=== PATIENT | female | born 1940 | race Caucasian/White ===

== ENCOUNTER 2023-11-08 07:16 | Day surgery (SDC) | payer MEDICARE, BC ==
[~2023-11-08 07:16] MED LIST: ALPRAZolam 0.25 MG TAB PO PRN; ALPRAZolam 0.5 MG TAB PO PRN; ASPIRIN 325 MG TAB PO STA; NITROGLYCERIN SL TABS 0.4 MG TAB SUBLINGUAL PRN
[2023-11-08] MEDS: SODIUM CHLORIDE 0.9% 1,000 ML in EMPTY BAG 1 BAG IV SCH (07:23)
[2023-11-08] MEDS: IV FLUID CONTINUATION 1,000 ML IV ONE (07:24)
[2023-11-08 07:38] VITALS: TEMP 97.6
[2023-11-08] MEDS: SODIUM CHLORIDE 0.9% 1,000 ML IV ONE (07:39)
[2023-11-08 07:53] LABS: Basophils % (A) 0 %; Eosinophils # (A) 0.3 k/uL (0-0.7); Eosinophils % (A) 4 %; HCT 44.7 % (34.0-46.0); HGB 14.4 gm/dL (11.4-16.0); Hypochromasia Slight; Lymphocytes % (A) 28 %; MCH 31.5 pg (25.0-35.0); MCHC 32.2 g/dL (31.0-37.0); Mean Platelet Volume 7.5; Monocytes # (A) 0.5 k/uL (0-1.0); Monocytes % (A) 8 %; Neutrophils # (A) 4.1 k/uL (1.3-7.7); Neutrophils % (A) 59 %; Platelet Count 255 k/uL (150-450); RBC 4.56 m/uL (3.80-5.40)
[2023-11-08 08:13] LABS: African American GFR (CKD) 78 (>60 ml/min/1.73 sqM); Anion Gap 8 mmol/L; Blood Urea Nitrogen 16 mg/dL (7-17); Calcium 10.1 mg/dL (8.4-10.2); Carbon Dioxide 27 mmol/L (22-30); Chloride 106 mmol/L (98-107); Glucose 94 mg/dL (74-99); Non-African American GFR(CKD) 68 (>60 ml/min/1.73 sqM); Potassium 4.4 mmol/L (3.5-5.1); Sodium 141 mmol/L (137-145)
[2023-11-08] MEDS ORDERED: LIDOCAINE 1% INJ 10MG/ML (20 ML MDV) ONE (08:33)
[2023-11-08] MEDS ORDERED: HEPARIN SODIUM 1,000 UN/ML (10ML VL) ONE (08:33)
[2023-11-08] MEDS ORDERED: VERAPAMIL 2.5 MG/ML 2 ML AMP ONE (08:33)
[2023-11-08] MEDS ORDERED: fentaNYL (PF) 50 MCG/ML 2 ML AMP ONE (08:33)
[2023-11-08] MEDS: BENZOCAINE SPRAY 1 CAN TOPICAL ONE ×2 (09:20)
[2023-11-08] MEDS: fentaNYL (PF) 50 MCG/ML 2 ML AMP IVP ONE (09:24)
[2023-11-08] MEDS: MIDAZOLAM 2 MG/2 ML VIAL IVP ONE ×2 (09:24→09:27)
--- NOTE | 2023-11-08 09:36 | P.PCN ---
Date of Procedure: 11/08/23 Operative Findings: TRANSESOPHAGEAL ECHOCARDIOGRAM LITHARGE SUPERVISOR: BRAVO PARK MD, RPVI INDICATION: Aortic stenosis SEDATION: Conscious sedation COMPLICATION: None LEVEL OF SEDATION Moderate to sedation length of 12 minutes PROCEDURE DESCRIPTION: After obtaining an informed consent, the patient was brought to transesophageal echocardiogram room. Pulse oximetry and heart monitors were attached to the patient. The patient throat was sprayed using lidocaine. The patient was turned into left lateral position. After that a bite guard was placed. After an appropriate conscious sedation was initiated, the transesophageal echocardiogram was advanced through a bite guard into the mid esophagus. A 2-D echocardiogram images, color Doppler images, continuous wave images, pulse-wave images, of various cardiac structure were performed. After that the transesophageal echocardiogram probe was advanced into the stomach and fixed to obtain transgastric view was. The probe was brought into the mid esophagus. Inter-atrial septum was interrogated using 2D images, color Doppler images, and then contrast study. After that transesophageal echocardiogram was withdrawn out and upon withdrawing the descending thoracic aorta all the way up to the arch was evaluated. CONCLUSION: 1. Trileaflet aortic valve with severe aortic stenosis. The aortic valve area was 0.6 cm. The mean gradient of the aortic valve is 50 mmHg with a peak gradient of 75 mm number 2. Mildly thickened mitral valve leaflets with moderate mitral regurgitation 3. Moderate tricuspid regurgitation 4. Normal LV systolic function 5. Intact left atrial appendage 6. No evidence of pericardial effusion
[2023-11-08] MEDS: LIDOCAINE 1% INJ 10MG/ML (20 ML MDV) SQ ONE (09:42)
[2023-11-08] MEDS: VERAPAMIL SYRINGE (5 MG/10 ML) INTRAARTER ONE (09:43)
[2023-11-08] MEDS: HEPARIN SODIUM 1,000 UN/ML (10ML VL) IV ONE (09:46)
[2023-11-08] MEDS: HEPARIN SODIUM,PORCINE (1 ML) 2,500 UNIT in SODIUM CHLORIDE 0.9% 250 ML IRRIGATION PRN (09:49)
[2023-11-08] MEDS: HEPARIN SODIUM,PORCINE 10,000 UNIT in SODIUM CHLORIDE 0.9% 1,000 ML IRRIGATION PRN (09:49)
[2023-11-08] MEDS ORDERED: RX INFO: IV CONTRAST WAS GIVEN 1 EACH MISC MISCELLANE PRN (09:54)
[2023-11-08] MEDS: IOPAMIDOL-370 100ML BTL INJ ONE (09:55)
--- NOTE | 2023-11-08 09:57 | P.PCN ---
Date of Procedure: 11/08/23 Operative Findings: CARDIAC CATHETERIZATION PERFORMING PHYSICIAN: Ernst Macedo MD, RPVI PROCEDURE PERFORMED: 1. Selective right and left coronary angiogram 2. Ultrasound-guided access of the right radial artery INDICATION: Aortic stenosis COMPLICATION: None APPROACH: Right radial artery LEVEL OF SEDATION: Moderate with a sedation length of 18 minutes PROCEDURE DESCRIPTION: After obtaining an informed consent, the patient was brought to cardiac record label internship. Local anesthesia was performed using lidocaine subcutaneously. The right radial artery was cannulated using Seldinger technique, the guidewire passed easily, following that we advanced a 5-Vincentian sheath dilator assembly, the wire and dilator were removed and sheath was flushed. Following that, 2 mg of verapamil along with 5000 unit heparin were given. Selective right and left coronary angiogram using a 6-Vincentian JR4 and JL 3.5 cat heters. The procedure was completed there was no complication. SELECTIVE CORONARY ANGIOGRAM: The right coronary artery: Moderate caliber vessel and a dominant vessel with mild disease only with no high-grade stenosis was identified Left main: Is angiographically normal. Bifurcates into an LCx and LAD The left circumflex: Large-caliber vessel nondominant vessel appears to be angiographically normal The left anterior descending artery: Large-caliber vessel with no high-grade stenosis was identified CONCLUSION: 1. Mild nonobstructive coronary artery disease POSTPROCEDURE MANAGEMENT: Proceed with an evaluation for aortic valve replacement percutaneously or surgically
[2023-11-08] MEDS ORDERED: SODIUM CHLORIDE 0.9% 1,000 ML IV SCH (10:00)
[2023-11-08 12:06] VITALS: RESP 16
[2023-11-08 13:41] VITALS: BP 143/78; PULSE 62
== END 2023-11-08 14:10 | disposition home or self-care (01) ==
LOC: CATHCVL 07:16
PROVIDERS: ATTEND Internal Medicine Interventional Cardiology
DX: I08.3 Combined rheumatic disorders of mitral, aortic and tricuspid valves (principal); I25.10 Atherosclerotic heart disease of native coronary artery without angina pectoris; I10 Essential (primary) hypertension; E78.5 Hyperlipidemia, unspecified; I49.8 Other specified cardiac arrhythmias; Z79.899 Other long term (current) drug therapy; Z88.8 Allergy status to other drugs, medicaments and biological substances; Z88.5 Allergy status to narcotic agent
CPT/HCPCS: 80048; 85025; 93312; 93320; 93325; 93454

== ENCOUNTER → 2023-11-23 | Outpatient (CLI) | payer MEDICARE, BC ==
[2023-11-23 09:42] LABS: Basophils % (A) 1 %; Eosinophils # (A) 0.2 k/uL (0-0.7); Eosinophils % (A) 3 %; HCT 45.1 % (34.0-46.0); HGB 14.6 gm/dL (11.4-16.0); Hypochromasia Slight; Lymphocytes # (A) 1.6 k/uL (1.0-4.8); Lymphocytes % (A) 26 %; MCHC 32.5 g/dL (31.0-37.0); MCV 98.6 fL (80.0-100.0); Mean Platelet Volume 7.7; Monocytes # (A) 0.4 k/uL (0-1.0); Monocytes % (A) 7 %; Neutrophils # (A) 3.8 k/uL (1.3-7.7); Neutrophils % (A) 61 %; Platelet Count 232 k/uL (150-450); RBC 4.58 m/uL (3.80-5.40); RDW 12.8 % (11.5-15.5); WBC 6.2 k/uL (3.8-10.6)
[2023-11-23 09:53] LABS: ALT 18 U/L (4-34); AST 29 U/L (14-36); Albumin 4.4 g/dL (3.5-5.0); Albumin/Globulin Ratio 1.8; Alkaline Phosphatase 62 U/L (38-126); Bilirubin,Unconjugated 0.7 mg/dL (0.0-1.1); Globulin 2.5 g/dL; Magnesium 2.2 mg/dL (1.6-2.3); Total Bilirubin 0.8 mg/dL (0.2-1.3); Total Protein 6.9 g/dL (6.3-8.2)
[2023-11-23 09:55] LABS: ALT 19 U/L (4-34); AST 31 U/L (14-36); African American GFR (CKD) 78 (>60 ml/min/1.73 sqM); Albumin 4.4 g/dL (3.5-5.0); Albumin/Globulin Ratio 1.8; Alkaline Phosphatase 60 U/L (38-126); Anion Gap 7 mmol/L; Blood Urea Nitrogen 14 mg/dL (7-17); Calcium 10.1 mg/dL (8.4-10.2); Carbon Dioxide 27 mmol/L (22-30); Chloride 105 mmol/L (98-107); Globulin 2.5 g/dL; Glucose 98 mg/dL (74-99); Non-African American GFR(CKD) 68 (>60 ml/min/1.73 sqM); Potassium 4.5 mmol/L (3.5-5.1); Sodium 139 mmol/L (137-145); Total Bilirubin 0.9 mg/dL (0.2-1.3); Total Protein 6.9 g/dL (6.3-8.2)
[2023-11-23 09:56] LABS: INR 0.9 (<1.2); Partial Thromboplastin Time 22.8 sec (22.0-30.0); Prothrombin Time 10.5 sec (10.0-12.5)
[2023-11-23 10:03] LABS: NT-Pro-B-Type Natriuretic Pept 309 pg/mL
--- NOTE | 2023-11-23 13:48 | CT ---
EXAMINATION TYPE: CT TAVR Planning DATE OF EXAM: 11/23/2023 HISTORY: TAVR planning CT DLP: 1760.90 mGycm Automated Exposure Control for Dose Reduction was Utilized. CONTRAST: CT scan of the chest, abdomen and pelvis is performed with IV Contrast, patient injected with 125 mL of Isovue 370. COMPARISON: None TECHNIQUE: Helical imaging obtained through the chest, abdomen and pelvis during arterial phase gio christina administration of radiographic contrast intravenously. FINDINGS: See report from [facility] regarding preprocedural planning CHEST: Lower Neck and Thyroid: No significant findings Lungs: No significant findings Central Airway: No significant findings Pleura: No significant findings Pulmonary Arteries: No significant findings Heart and Pericardium: Mildly enlarged. No pericardial effusion. Lymph Nodes: No significant findings Mediastinum & Esophagus: No significant findings AV Calcification Severity: Mild ABDOMEN/PELVIS: Please note arterial phase of the imaging limits detailed evaluation of the solid abdominal organs. Liver: No significant findings Spleen: No significant findings Kidneys: No hydronephrosis. Bilateral renal cysts with large right inferior pole 6.5 cm cyst. Adrenal Glands: No significant findings Pancreas: No significant findings Gallbladder: Extrahepatic biliary ductal dilatation postcholecystectomy. 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 Bowel and Mesentery: Small hiatal hernia. Lymph Nodes: No significant findings Urinary Bladder: No significant findings Pelvic Organs: Calcified right uterine 1.7 cm fibroid. Other: Levoscoliotic curvature of the lumbar spine. Grade 1 anterolisthesis at L4-L5. Other Lines/Tubes/Devices/Hardware: None IMPRESSION: 1. No acute process. 2. Mild aortic valvular calcifications of aorta. [facility], , 11/23/2023 1:46 PM
[2023-11-23 15:21] LABS: Appearance,Urine Clear (Clear); Bilirubin,Urine Negative (Negative); Blood,Urine Negative (Negative); Color,Urine Yellow (Yellow); Ketones,Urine Negative (Negative); Nitrite,Urine Negative (Negative); PH, Urine 6.5; Specific Gravity,Urine 1.009 (1.001-1.030); Urobilinogen,Urine 0.2 E.U./DL
[2023-11-23 15:27] LABS: Bacteria,Urine None Seen (None Seen)
[2023-11-23 16:32] LABS: Chol/HDL Ratio 3.35 Ratio; LDL Cholesterol,Calculated 147.5 mg/dL (0.0-131.0)
== END | disposition home or self-care (01) ==
LOC: LABWHC1 08:54
PROVIDERS: ATTEND Thoracic Surgery (Cardiothoracic Vascular Surgery)
DX: Z01.818 Encounter for other preprocedural examination (principal); I35.0 Nonrheumatic aortic (valve) stenosis; E87.8 Other disorders of electrolyte and fluid balance, not elsewhere classified; R58 Hemorrhage, not elsewhere classified; Z79.01 Long term (current) use of anticoagulants; R35.0 Frequency of micturition; E07.9 Disorder of thyroid, unspecified; E11.9 Type 2 diabetes mellitus without complications; N28.9 Disorder of kidney and ureter, unspecified; Z79.899 Other long term (current) drug therapy
CPT/HCPCS: 94150; 83880; 80061; 80053; 80076; 84443; 83735; 85025; 85610; 85730; 81001; 87086; 83036; 71275; 74174; 36415; Q9967

== ENCOUNTER → 2023-12-06 | Outpatient (CLI) | payer MEDICARE, BC ==
[2023-12-06 17:32] LABS: INR 0.9 (<1.2); Partial Thromboplastin Time 23.7 sec (22.0-30.0); Prothrombin Time 10.3 sec (10.0-12.5)
[2023-12-07 02:26] LABS: Basophils # (A) 0.03 X 10*3/uL (0.00-0.10); Basophils % (A) 0.4 %; Eosinophils # (A) 0.25 X 10*3/uL (0.04-0.35); Eosinophils % (A) 3.4 %; HCT 44.8 % (37.2-46.3); HGB 14.1 g/dL (12.0-15.0); Lymphocytes % (A) 32.7 %; MCH 31.1 pg (27.0-32.0); MCHC 31.5 g/dL (32.0-37.0); MCV 98.9 FL (80.0-97.0); Mean Platelet Volume 10.7 FL (9.5-12.2); Monocytes # (A) 0.74 X 10*3/uL (0.20-1.00); Monocytes % (A) 10.1 %; NRBC Per 100 WBC 0 X 10*3/uL (0.00-0.01); Neutrophils % (A) 53.1 %; Platelet Count 252 X 10*3/uL (140-440); RBC 4.53 X 10*6/uL (4.10-5.20); RDW 13.4 % (11.5-14.5); WBC 7.34 X 10*3/uL (4.50-10.00)
[2023-12-07 03:11] LABS: Blood Urea Nitrogen 15.7 mg/dL (9.0-27.0); Carbon Dioxide 26.4 mmol/L (21.6-31.8); Chloride 104 mmol/L (96-109); Potassium 4.6 mmol/L (3.5-5.5); Sodium 141 mmol/L (135-145)
== END | disposition home or self-care (01) ==
LOC: LABPAT 16:01
PROVIDERS: ATTEND Surgery
DX: Z01.812 Encounter for preprocedural laboratory examination (principal); I35.0 Nonrheumatic aortic (valve) stenosis
CPT/HCPCS: 80051; 82565; 84520; 85025; 85610; 85730; 86850; 86900; 86901

== ENCOUNTER 2023-12-08 07:29 | Inpatient (IN) | payer MEDICARE, BC ==
[~2023-12-08 07:29] MED LIST changes: -ALPRAZolam 0.25 MG TAB PO PRN; -ALPRAZolam 0.5 MG TAB PO PRN; -ASPIRIN 325 MG TAB PO STA; +CLEVIDIPINE BUTYRATE 25 MG in EMPTY BAG 1 BAG IV PRN; +ELECTROLYTE-A SOLUTION 1,000 ML with POTASSIUM CHLORIDE 100 MEQ, MAGNESIUM SULFATE 16 M... IV PRN; +INSULIN REGULAR 100 UNIT in SODIUM CHLORIDE 0.9% 100 ML IV PRN; -NITROGLYCERIN SL TABS 0.4 MG TAB SUBLINGUAL PRN; +NITROGLYCERIN-D5W PMX 25 MG/250 ML BTL IV PRN; +PROTAMINE SULFATE 250 MG in EMPTY BAG 1 BAG IV PRN; +SODIUM CHLORIDE 0.9% 500 ML 500 ML INTRAARTER PRN; +TRANEXAMIC ACID 2,000 MG in SODIUM CHLORIDE 0.9% 80 ML IV PRN
[2023-12-08] MEDS: ASPIRIN 325 MG TAB PO ONE (08:03)
[2023-12-08 08:09] LABS: Glucose,Whole Blood 89 mg/dL (70-110)
[2023-12-08] MEDS: ATORVASTATIN 10 MG TAB PO ONE (08:16)
[2023-12-08] MEDS: CLOPIDOGREL 75 MG TAB PO ONE (08:16)
[2023-12-08] MEDS: METOPROLOL TARTRATE 25 MG TAB PO ONE (08:17)
[2023-12-08] MEDS ORDERED: PROTAMINE SULFATE 10 MG/ML 5 ML VIAL ONE (09:48)
[2023-12-08] MEDS ORDERED: ePHEDrine 50 MG/ML 1 ML VIAL ONE (09:48)
[2023-12-08] MEDS ORDERED: NEOSTIGMINE 1 MG/ML 10 ML VIAL ONE (09:48)
[2023-12-08] MEDS ORDERED: HEPARIN SODIUM,PORCINE 5,000 UNIT/ML 1 ML VIAL ONE (09:48)
[2023-12-08] MEDS ORDERED: SUCCINYLCHOLINE CHLORIDE 200 MG/10 ML VIAL IV ONE (09:48)
[2023-12-08] MEDS ORDERED: GLYCOPYRROLATE 0.2 MG/ML 2 ML VIAL ONE (09:48)
[2023-12-08] MEDS ORDERED: fentaNYL (PF) 50 MCG/ML 2 ML AMP ONE (09:48)
[2023-12-08] MEDS ORDERED: ROCURONIUM 10 MG/ML (5 ML VIAL) IV ONE (09:48)
[2023-12-08] MEDS ORDERED: PROPOFOL 10 MG/ML 20 ML VIAL IV ONE (09:48)
[2023-12-08] MEDS ORDERED: MIDAZOLAM 2 MG/2 ML VIAL ONE (09:48)
[2023-12-08] MEDS: IOPAMIDOL-370 100ML BTL INJ ONE (10:59)
[2023-12-08] MEDS: SODIUM CHLORIDE 0.9% 1,000 ML IV ONE (11:00)
--- NOTE | 2023-12-08 11:13 | P.ANPRN ---
Procedure Note - Anesthesia - VALE Intraop Pre Bypass VALE Intraop - Anesthesia Indication: TAVR Date of Procedure: 12/08/23 Pre-operative Diagnosis: Aortic Stenosis Post-operative Diagnosis: Aortic Stenosis s/p tavr, mitral regurg, tricuspid regurg Surgeon: Leobardo Carrillo Left Ventricle: wnl Ejection Fraction: Normal Regional Wall Motion Abnormalities: None Left Ventricle Hypertrophy: Yes R. Ventricle Function: Normal Aortic Valve: calcified LVOT 2.5, aorta 3.3, peak 60/mean 34 Anatomy: Trileaflet Aortic Stenosis: Severe Aortic Regurgitation: None Mitral Stenosis: None Mitral Regurgitation: Trace Tricuspid Stenosis: None Tricuspid Regurgitation: Trace Pulmonic Stenosis: None Pulmonic Regurgitation: None R. Atrial Dilation: No R. Atrial PFO: No L. Atrial Dilation: No Aortic Dissection: No Aortic Calcification: None Plural Effusion: None
--- NOTE | 2023-12-08 11:14 | P.ANPRN ---
Procedure Note - Anesthesia - VALE Intraop Post Bypass VALE Intraop Post Bypass Procedure Performed: TAVR Left Ventricle: wnl Ejection Fraction: Normal Regional Wall Motion Abnormalities: None R. Ventricle Function: Normal Aortic Valve: prosthetic aortic valve in place. No perivalvular leak. Unidirectional. Residual mean 2. Mitral Valve: Unchanged Tricuspid: Unchanged Pulmonic: Unchanged Aortic Dissection: No
--- NOTE | 2023-12-08 11:44 | P.OP ---
Date of Procedure: 12/08/23 Preoperative Diagnosis: Symptomatic calcific aortic stenosis Postoperative Diagnosis: Same Procedure(s) Performed: Percutaneous transfemoral transcatheter aortic valve replacement with 23 mm Bray NARINDER 3 aortic valve prosthesis. Implants: 23 mm Bray NARINDER 3 aortic valve prosthesis. Anesthesia: GETA Surgeon: Leobardo Carrillo (Cardiovascular surgeon) Barrel Rifler Hook #1: Joaquim Lawson (chief design branch) Barrel Rifler Hook #2: Maninder Hillman ([place] combination building inspector) Estimated Blood Loss (ml): 25 IV fluids (ml): 800 Pathology: none sent Condition: stable Disposition: PACU Indications for Procedure: 82-year-old female with progressive symptomatic aortic stenosis which is felt to be severe on echocardiography. She was evaluated in the valve clinic and felt to be most appropriate for transcatheter aortic valve replacement. Due to an extremely horizontal root angle she was felt to be most appropriate for Bray valve. Operative Findings: Would angle was extremely horizontal. There is severe aortic stenosis. Completion echocardiography demonstrated no evidence of paravalvular leak. Valve appeared to be in good position with depths of 20 80. Description of Procedure: Patient was brought to the cardiac catheterization laboratory. She was placed supine on the table anesthetized and intubated. The anterior torso and bilateral femoral areas were sterilely prepped and draped. Bilateral femoral arterial access was obtained under ultrasound guidance. Initially a 7 [place] Islander catheter was placed on the right and a long 6 [place]er catheter was placed on the left. This was advanced into the descending thoracic aorta. Pigtail catheter was placed through it and advanced into the right coronary sinus of Valsalva. L eft femoral venous access was obtained under ultrasound guidance and an 8 [place] Islander catheter was placed. Through it a temporary venous pacer wire was placed into the right ventricle and tested. Not attempting to thread a wire proximally up the right side, retrograde dissection was recognized. This was confirmed on angiography. We were able to carefully thread a Glidewire up into the aorta. At this point it was decided to switch our primary access from right to left. The 6 [place] sheath and pigtail were removed on the left over a guidewire and a 7 [place] sheath was placed. 2 Perclose devices were then placed. An 8 [place] sheath was then placed. The 7 [place] sheath on the right was removed maintaining the guidewire and a long 6 [place] sheath was placed here and advanced into the descending thoracic aorta. 3 with the pigtail was replaced and placed back into the right coronary sinus of Valsalva. The left femoral sheath was now upsized to a 14E sheath over a stiff wire and secured with a 2-0 silk suture. Patient was systemically heparinized and ACT is maintained over 250. Aortic valve was crossed from the left side with a straight wire and a pigtail catheter positioned in the apex of the ventricle. Transvalvular gradients were measured. Safari wire was then placed in the apex of the ventricle. A 23 mm Bray NARINDER 3 valve had been loaded on the back table with an extra cc in the balloon. It was brought up onto the field and advanced over the safari wire into the descending thoracic aorta. The balloon was pulled back into appropriate position inside the stent. It was then advanced across the aortic valve. The pusher was pulled back. The valve was deployed under rapid ventricular pacing. This proceeded without event. Deployment system was pulled back and the valve was checked under VALE. We were happy with everything in heparin was reversed with protamine. The valve delivery system was removed and an angiogram of the right femoral artery was performed antegrade from the left demonstrating excellent flow with no evidence of the dissection with antegrade flow no narrowing and no limitation of flow to the lower leg. The left femoral sheath was then removed and the Perclose devices deployed. Excellent hemostasis was obtained. Completion angiography was performed demonstrating no significant stenosis and excellent flow to the right lower extremity with no evidence of leak. Temporary pacer and left femoral venous line as well as the right femoral arterial line were both removed and hemostasis obtained with direct pressure. Patient was awakened extubated and transferred to recovery area in stable condition.
[2023-12-08] MEDS ORDERED: ONDANSETRON 4 MG/2 ML VIAL IVP PRN (11:55)
[2023-12-08] MEDS ORDERED: Potassium Replacement Protocol 1 EACH MISC MISCELLANE PRN (11:55)
[2023-12-08] MEDS ORDERED: IPRATROPIUM-ALBUTEROL 3 ML NEB INHALATION PRN (11:55)
[2023-12-08] MEDS ORDERED: TUMS PO PRN (11:55)
[2023-12-08] MEDS ORDERED: Magnesium Replacement Protocol 1 EACH MISC MISCELLANE PRN (11:55)
[2023-12-08 12:10] LABS: Basophils % (A) 0 %; Eosinophils # (A) 0.2 k/uL (0-0.7); Eosinophils % (A) 3 %; HCT 37.7 % (34.0-46.0); Lymphocytes # (A) 1.1 k/uL (1.0-4.8); Lymphocytes % (A) 18 %; MCH 31.2 pg (25.0-35.0); MCHC 31.9 g/dL (31.0-37.0); Mean Platelet Volume 7.3; Monocytes # (A) 0.4 k/uL (0-1.0); Monocytes % (A) 6 %; Neutrophils # (A) 4.2 k/uL (1.3-7.7); Neutrophils % (A) 70 %; Platelet Count 189 k/uL (150-450); RBC 3.85 m/uL (3.80-5.40); RDW 12.7 % (11.5-15.5); WBC 5.9 k/uL (3.8-10.6)
[2023-12-08 12:20] LABS: African American GFR (CKD) >90 (>60 ml/min/1.73 sqM); Anion Gap 4 mmol/L; Blood Urea Nitrogen 13 mg/dL (7-17); Calcium 8.6 mg/dL (8.4-10.2); Carbon Dioxide 23 mmol/L (22-30); Chloride 109 mmol/L (98-107); Glucose 115 mg/dL (74-99); Non-African American GFR(CKD) 87 (>60 ml/min/1.73 sqM); Potassium 3.9 mmol/L (3.5-5.1); Sodium 136 mmol/L (137-145)
--- NOTE | 2023-12-08 12:26 | XR ---
EXAMINATION TYPE: XR chest 1V portable DATE OF EXAM: 12/08/2023 Comparison: None Clinical History: 82-year-old female Post Operative Cardiac Surgery Findings: There is a endovascular aortic valve replacement demonstrated. Heart upper limits of normal in size. Mild interstitial density probably chronic. No meliton consolidation or pleural effusion. There is some stringy atelectasis at the right lower lung. Narrowing of the subacromial space right shoulder sugge sting underlying chronic full-thickness rotator cuff tear. Impression: Interstitial prominence probably chronic for the patient. Some strandy atelectasis at the right base. Endovascular aortic valve replacement. [facility], , 12/08/2023 12:23 PM
--- NOTE | 2023-12-08 12:33 | P.OP ---
Description of Procedure: Transcatheter Aoritc Valve Replacement Operative report PROCEDURE PERFORMED: 1. Percutaneous Aortic Valve Implantation using a 23 mm Delaney S3. 2. Transesophageal echocardiography (performed by anesthesia) 3. Ultrasound guided access and repair of left femoral artery access site by Perclose closure device. 4. Placement of temporary pacemaker wire. 5. Aortic root angiography INDICATIONS: 1.82 year-old with a history of severe symptomatic aortic valve stenosis. PERFORMING PHYSICIANS: 1. Joaquim Lawson, Interventional Cardiology 2. Leobardo Carrillo MD, Cardiothoracic Surgeon. SEDATION: General anesthesia provided by anesthesia, see separate note APPROACH: Left femoral artery via percutaneous approach PROCEDURE DESCRIPTION: The patient was discussed at valve clinic with multidisciplinary approach with cardiothoracic surgeon as well as propagator and thought better treated with TAVR. Risks, benefits, and alternatives of the procedure had been explained to the patient who understood the risks and agreed to proceed. After consents were obtained, patient was brought to the transcatheter aortic valve implantation r oom in the cardiac labor and employment paralegal and general anesthesia was provided by the anesthesiologist (see separate report). Once full body sterile prep was performed, left femoral venous access was obtained and a temporary pacemaker was placed in the RV. Pacing threshholds were checked and deemed appropriate. Next the right femoral artery was accessed using a modified Seldinger technique, ultrasound guidance and micropuncture technique. Initially thought to have the right femoral axis for the large bore sheath however upon advancing the wire, the wire was unable to dance at the iliac. Angiography therefore was performed which did show a nonflow limiting dissection likely related to sheath been up against the wall of the artery. Therefore the dissection was able to be wired past with a 0.035 Glidewire and a 6 Thai destination sheath was placed in the right femoral artery. Next, a 6-Thai pigtail catheter was advanced into the aorta and positioned in the aortic root, aortic root angiography was performed to determine optimal deployment angle. The left femoral artery was accessed using modified Seldinger technique, micropuncture technique and under direct ultrasound guidance. Femoral angiogram was done showing access in the common femoral artery and a 6Fr sheath was placed. Next preclose technique was performed using 2 Perclose. Next a 0.035 Safari wire was placed in the Aorta via a pigtail catheter. Over that the arteriotomy was serially dilated and a 14 Fr Bray sheath was placed. Next a 6F- AL1 catheter was advanced over a wire to the aortic root. A straight wire was advanced through the catheter and used to cross the severely stenotic valve. The AL1 was then exchanged for a 6Fr pigtail catheter and pressure measurements were obtained. The 0.035 Safari wire was then positioned in the apex. Next a 23 mm Delaney S3 (+1cc on balloon) was advanced and loaded onto the balloon. The valve was then positioned across the aortic valve and confirmed with aortic root angiography. The valve was then deployed in proper position using slow balloon inflation and with rapid pacing in conjuncture with aortic root angiography. The delivery system was withdrawn back into the arch and an aortic root injection in conjunction with VALE demonstrated a satisfactory result. There was no para valvular leak. There was no evidence of any other significant abnormalities. Through the left femoral sheath, right femoral angiography was performed which showed nonflow limiting dissection of the right external illiac artery with unimpeded blood flow and no extension. The preclose Perclose was then deployed in the left femoral artery and with addition of 8Fr Angioseal hemostasis was achieved. A 6Fr Rim catheter was then advanced to the level of the left iliac bifurcation via the right femoral access. Femoral angiogram was performed that showed no contrast leak. The [] femoral angiogram demonstrated an arteriotomy in the common femoral artery and sheath left in place to be pulled later. The temporary venous pacemaker was withdrawn and the left femoral venous sheath was pulled with hemostasis achieved. The patient was then transported to the post op area in hemodynamically stable condition, requiring no pressor support. 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 Implantaion of 23 mm Delaney S3 transcatheter aortic valve via left femoral approach under VALE and fluoro guidance with no angelia-valvular aortic regurgitation. 2. Placement of temporary pacemaker wire 3. Aortic Root Aortogram. 4. 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 Right external iliac dissection non flow limiting and should heal on it's own. Monitor vascular access sites.
[2023-12-08] MEDS: hydrALAZINE HCL 20 MG/ML 1 ML VIAL IVP PRN (12:59)
[2023-12-08] MEDS: LACTATED RINGERS 1,000 ML IV SCH ×2 (15:17→15:31)
[2023-12-08] MEDS: LOSARTAN 25 MG TAB PO SCH (19:48)
[2023-12-08] MEDS: ACETAMINOPHEN TAB 500 MG TAB PO PRN (19:49)
[2023-12-08] MEDS: SENNOSIDES-DOCUSATE SODIUM 1 EACH TAB PO SCH (19:50)
[2023-12-09] MEDS: HEPARIN SODIUM,PORCINE 5,000 UNIT/ML 1 ML VIAL SQ SCH (00:37)
[2023-12-09] MEDS: PANTOPRAZOLE 40 MG TABLET PO SCH (06:13)
[2023-12-09 06:28] LABS: Basophils % (A) 0 %; Eosinophils % (A) 0 %; HCT 36.3 % (34.0-46.0); HGB 11.7 gm/dL (11.4-16.0); Lymphocytes # (A) 1.1 k/uL (1.0-4.8); Lymphocytes % (A) 12 %; MCH 31.8 pg (25.0-35.0); MCHC 32.2 g/dL (31.0-37.0); MCV 98.6 fL (80.0-100.0); Mean Platelet Volume 7.2; Monocytes # (A) 0.7 k/uL (0-1.0); Monocytes % (A) 7 %; Neutrophils # (A) 6.9 k/uL (1.3-7.7); Neutrophils % (A) 78 %; Platelet Count 169 k/uL (150-450); RBC 3.68 m/uL (3.80-5.40); RDW 12.9 % (11.5-15.5); WBC 8.9 k/uL (3.8-10.6)
[2023-12-09 07:28] LABS: Ionized Calcium 4.9 mg/dL (4.5-5.3)
[2023-12-09 07:35] LABS: ALT 25 U/L (4-34); AST 35 U/L (14-36); African American GFR (CKD) >90 (>60 ml/min/1.73 sqM); Albumin 3.1 g/dL (3.5-5.0); Alkaline Phosphatase 49 U/L (38-126); Anion Gap 6 mmol/L; Blood Urea Nitrogen 10 mg/dL (7-17); Carbon Dioxide 22 mmol/L (22-30); Chloride 105 mmol/L (98-107); Glucose 115 mg/dL (74-99); Magnesium 1.9 mg/dL (1.6-2.3); Non-African American GFR(CKD) 85 (>60 ml/min/1.73 sqM); Potassium 3.9 mmol/L (3.5-5.1); Sodium 133 mmol/L (137-145); Total Bilirubin 0.7 mg/dL (0.2-1.3); Total Protein 5.3 g/dL (6.3-8.2)
[2023-12-09] MEDS: MULTIVITAMINS, THERA 1 EACH TAB PO SCH (08:26)
[2023-12-09] MEDS: METOPROLOL SUCCINATE (ER) 50 MG TAB.ER.24H PO SCH (08:26)
[2023-12-09] MEDS: ASPIRIN 81 MG PO SCH (08:26)
[2023-12-09] MEDS: CALCIUM CARBONATE 500 MG CHEWABLE PO PRN (08:26)
[2023-12-09] MEDS: EZETIMIBE 10 MG TAB PO SCH (08:26)
[2023-12-09] MEDS ORDERED: MAGNESIUM HYDROXIDE 2,400 MG/30 ML CUP PO PRN (09:00)
[2023-12-09] MEDS ORDERED: bisacodyL 10 MG SUPP RECTAL PRN (09:00)
--- NOTE | 2023-12-09 09:49 | XR ---
EXAMINATION TYPE: XR chest 1V portable DATE OF EXAM: 12/09/2023 Comparison: 12/08/2023 Clinical History: 82-year-old female Post Operative Cardiac Surgery Findings: Heart upper limits normal in size. Focal patchy opacity of the right lower lung has increased as well as a somewhat elongated configuration favoring atelectasis at this time. Endovascular aortic valve r eplacement. No other consolidation or pleural effusion. Impression: Previous endovascular aortic valve replacement. Opacity at the right base is increasing, favored to r epresent atelectasis at this time. Attention on follow-up especially if any infectious respiratory si gns or symptoms develop. [facility], , 12/09/2023 9:46 AM
[2023-12-09 10:24] VITALS: BMI 2985.6
--- NOTE | 2023-12-09 11:25 | CA ---
Transthoracic Echo Report Name: Rosa Liz Age: 82 Gender: F : 1940 Exam Date: 12/09/2023 08:02 Exam Location: [facility] Ht (in): 60 Wt (lb): 132 Ordering Physician: Mila Spain Attending/Referring Phys: [id number], Judit Manager Civil Glenna Santiago RDCS Procedure CPT: Indications: post TAVR Cardiac Hx: 1day post TAVR Technical Quality: Fair Contrast 1: Total Dose (mL): Contrast 2: Total Dose (mL): MEASUREMENTS (Male / Female) Normal Values 2D ECHO LV Diastolic Diameter PLAX 3.8 cm 4.2 - 5.9 / 3.9 - 5.3 cm LV Systolic Diameter PLAX 2.6 cm IVS Diastolic Thickness 1.1 cm 0.6 - 1.0 / 0.6 - 0.9 cm LVPW Diastolic Thickness 1.2 cm 0.6 - 1.0 / 0.6 - 0.9 cm LV Relative Wall Thickness 0.6 RV Internal Dim ED PLAX 2.1 cm LVOT Diameter 1.8 cm LA Systolic Diameter LX 4.1 cm 3.0 - 4.0 / 2.7 - 3.8 cm LV Diastolic Volume MOD BP 50.4 cm??? 67 - 155 / 56 - 104 cm??? LV Systolic Volume MOD BP 13.7 cm??? 22 - 58 / 19 - 49 cm??? LV Ejection Fraction MOD BP 72.8 % >= 55 % LV Cardiac Index MOD BP 1415.9 cm???/min???m??? LV Diastolic Volume MOD 4C 46.5 cm??? LV Systolic Volume MOD 4C 11.3 cm??? LV Ejection Fraction MOD 4C 75.7 % LV Cardiac Index MOD 4C 1357.6 cm???/min???m??? LV Diastolic Length 4C 7.3 cm LV Systolic Length 4C 6.3 cm LV Diastolic Volume MOD 2C 55.4 cm??? LV Systolic Volume MOD 2C 14.8 cm??? LV Ejection Fraction MOD 2C 73.4 % LV Cardiac Index MOD 2C 1567.6 cm???/min???m??? LV Diastolic Length 2C 7.2 cm LV Systolic Length 2C 5.4 cm LA Volume 62.6 cm??? 18 - 58 / 22 - 52 cm??? LA Volume Index 39.0 cm???/m??? 16 - 28 cm???/m??? M-MODE Aortic Root Diameter MM 3.2 cm LA Systolic Diameter MM 3.9 cm LA Ao Ratio MM 1.2 DOPPLER AV Peak Velocity 250.8 cm/s AV Peak Gradient 25.2 mmHg AV Mean Velocity 177.5 cm/s AV Mean Gradient 14.0 mmHg AV Velocity Time Integral 57.3 cm LVOT Peak Velocity 96.0 cm/s LVOT Peak Gradient 3.7 mmHg LVOT Velocity Time Integral 24.0 cm LVOT Stroke Volume 63.1 cm??? LVOT Stroke Volume Index 40.3 ml/m??? LVOT Cardiac Index 2434.5 cm???/min???m??? AV Area Cont Eq vti 1.1 cm??? AV Area Cont Eq pk 1.0 cm??? MV Area PHT 2.2 cm??? Mitral E Point Velocity 73.4 cm/s Mitral A Point Velocity 123.0 cm/s Mitral E to A Ratio 0.6 MV Deceleration Time 344.2 ms TR Peak Velocity 261.4 cm/s TR Peak Gradient 27.3 mmHg Right Ventricular Systolic Press 32.0 mmHg FINDINGS Left Ventricle Left ventricular ejection fraction is estimated at 55-60 %. Left ventricular cavity size normal. Normal left ventricular systolic function with no obvious regional wall motion abnormalities.Mildly increased left ventricular wall thickness. Right Ventricle Normal right ventricular size and function. Right ventricular systolic pressure within normal limits. Right Atrium Mild right atrial dilatation. Left Atrium Mildly increased left atrial diameter. Mildly increased left atrial volume. Mitral Valve Structurally normal mitral valve. Moderate mitral regurgitation. No mitral stenosis.moderate mitral annular calcification. Aortic Valve Normally functioning bioprosthetic aortic valve TAVR, without stenosis with a peak velocity of 2.5m/s, peak gradient 25 mmHg, mean gradient 14mmHg. No paravalvular aortic regurgitation. No central aortic regurgitation. Tricuspid Valve Structurally normal tricuspid valve. Mild to moderate tricuspid regurgitation. No tricuspid stenosis. Pulmonic Valve Structurally normal pulmonic valve. No pulmonic stenosis. Pericardium No pericardial or pleural effusion. Aorta Normal size aortic root and proximal ascending aorta. CONCLUSIONS 1. Normal left ventricular size and systolic function 2. Normal appearance of TAVR with a mean gradient of 14 mmHg and no regurgitation 3. Moderate mitral with [id number] tricuspid regurgitation Previewed by: Dr. Amanda Crain MD (Electronically Signed) Final Date: 09 December 2023 11:24
[2023-12-09 11:27] VITALS: BP 109/65; PULSE 70; RESP 16; TEMP 98.4
[2023-12-09] MEDS: BENZOCAINE/MENTHOL LOZENG 1 EACH LOZENGE MUCOUS MEM PRN (11:56)
--- NOTE | 2023-12-09 13:01 | P.DS ---
Providers Date of admission: 12/08/23 07:29 Expected date of discharge: 12/09/23 Attending physician: Joaquim Lawson DO Consults: 12/08/23 10:55 Consult Physician Routine Consulting Provider: Leobardo Carrillo Consult Reason/Comments: post TAVR Do you want consulting provider notified?: Already Contacted Primary care physician: Jef Chapin MD Hospital Course: MEDICAL HISTORY: Calcified aortic valve with severe symptomatic aortic valve stenosis, NYHA III History of hypertension Hyperlipidemia GERD Lifelong non-smoker PROCEDURE: Percutaneous aortic valve implantation using a 23 mm Delaney S3 under VALE and fluoroscopy guidance Transesophageal echocardiography performed by anesthesia Ultrasound-guided access and repair of left femoral artery access site by Perclose closure device Placement of temporary pacemaker wire Aortic root angiography HISTORY OF PRESENT ILLNESS: This is an 82-year-old female who follows on an outpatient basis with Dr. Chapin for primary care and Dr. Macedo for cardiology. She has a known history of severe aortic stenosis and has been symptomatic with increased exertional dyspnea as well as dizziness and lightheadedness. She had been referred to structural heart clinic for evaluation for transcatheter aortic valve replacement after heart catheterization and transesophageal echocardiogram were completed. Echocardiography demonstrated normal systolic function with EF 55-60%, aortic valve area 0.59 cm with a peak/mean gradient 75/50 mmHg. Heart catheterization showed mild nonobstructive disease. After workup was completed STS risk score was calculated along with incremental risk and the patient was felt to be electively low risk for surgical aortic valve replacement however the patient preferred not to have open heart surgery, therefore transcatheter aortic valve replacement was recommended. The usual course of TAVR was discussed in detail the patient, risks and benefits were reviewed, shared decision making between cardiology, surgery, and the patient/family took place, and the patient consented to proceed with the procedure. HOSPITAL COURSE: The patient was brought to the hospital on 12/08/23, was taken to the extended stay area, prepared in the usual fashion, and subsequently taken to the cardiac catheterization laboratory where Dr. Lawson and Dr. Carrillo completed TAVR procedure under general anesthesia with fluoroscopy and VALE. The valve was deployed under rapid ventricular pacing and proceeded without event. At the end of the procedure there was no significant gradient, hemodynamics were felt to be acceptable, and there was no evidence of significant perivalvular leak. Upon completion of the procedure the patient was extubated and was transferred to the cardiac stepdown unit where she was recovered and monitored hemodynamically. Her oxygen was titrated down, she was tolerating oral diet, her pain was controlled, follow-up TTE demonstrated normal left ventricular systolic function, normally functioning aortic valve with pk/mean gradient 25/14 mmHg, no paravalvular leak, and she was ready to be discharged to home on postoperative day #1. She received written and verbal instruction regarding her medications, activity restrictions, signs and symptoms requiring physician notification, and follow-up appointments. Patient Condition at Discharge: Stable Plan - Discharge Summary Discharge Rx Participant: No New Discharge Prescriptions: New Sennosides-Docusate Sodium [Senokot-S] 2 each PO HS PRN tab PRN Reason: Constipation Continue Metoprolol Succinate (ER) [Toprol XL] 50 mg PO DAILY Ezetimibe [Zetia] 10 mg PO DAILY Losartan Potassium 25 mg PO BID Unk Tums 1 tab PO DIRECTED PRN PRN Reason: Heartburn Unk Multi Vitamin 1 tab PO DAILY Acetaminophen [Tylenol Extra Strength] 500 mg PO Q6H PRN PRN Reason: Pain Changed Aspirin [Florence Aspirin EC] 81 mg PO DAILY #30 Discharge Medication List Ezetimibe [Zetia] 10 mg PO DAILY 11/03/23 [History] Losartan Potassium 25 mg PO BID 11/03/23 [History] Metoprolol Succinate (ER) [Toprol XL] 50 mg PO DAILY 11/03/23 [History] Unk Multi Vitamin 1 tab PO DAILY 11/03/23 [History] Unk Tums 1 tab PO DIRECTED PRN 11/03/23 [History] Acetaminophen [Tylenol Extra Strength] 500 mg PO Q6H PRN 12/07/23 [History] Aspirin [Florence Aspirin EC] 81 mg PO DAILY #30 12/09/23 [Rx] Sennosides-Docusate Sodium [Senokot-S] 2 each PO HS PRN tab 12/09/23 [Rx] Follow up Appointment(s)/Referral(s): Ernst Macedo MD [STAFF PHYSICIAN] - 12/14/23 10:30 am (Your appointment on December 13 is for groin check with Dr. Macedo. You also have a 30-day post TAVR echocardiogram and office appointment with Dr. Macedo on 02/09/24 @ 3:15 pm, and a 1 year post TAVR echocardiogram and office appoint with Dr. Macedo on 11/17/24 @ 1:45 pm) Jef Chapin MD [Primary Care Provider] - As Needed Clinic,[facility] [NON-STAFF] - 02/09/24 2:45 pm (Please come to the TAVR clinic for your 30-day TAVR follow-up appointment on 02/09/24, and a 1 year TAVR follow-up appointment on 11/17/24 @ 1:15 pm) Ambulatory/Diagnostic Orders: Basic Metabolic Panel [LAB.AMB] Location: None Selected Basic Metabolic Panel [LAB.AMB] Location: None Selected Complete Blood Count w/diff [LAB.AMB] Time Frame: 3 Days, Location: None Selected Complete Blood Count w/diff [LAB.AMB] Location: None Selected Activity/Diet/Wound Care/Special Instructions: DISCHARGE INSTRUCTIONS: 1. No driving for 1 week, or until physician gives their ok. 2. No lifting, pushing, or pulling more than 5-10 pounds for 1 week. 3. Hold both groins when you cough or sneeze for the next 2 weeks. Bruising is common, but report increased swelling, pain or fever >101F 4. Shower daily. No pool, hot tub, or bathtub for 1 week 5. No powders, lotions, ointments on incisions. 6. No straining, including for bowel movements. Use stool softner if necessary 7. Stairs are not an issue. Go slowly, using handrail and take 1 step at a time. Ambulate several times daily 8. Continue pain control per as needed orders. 9. Take only the medications listed on your discharge form 10. Eat low salt (limited to 2 grams or 2000 milligrams) daily, avoid adding salt, avoid canned/processed foods 11. Take your weight daily in the morning and record, bring with you to your follow up appointments 12. Keep all follow up appointments. You will need a valve clinic appointment at 30 days and 1 year post procedure for follow up 13. You have been referred to and are expected to begin Cardiac Rehab in approximately 4 weeks. 14. You will need antibiotics prior to any dental work, including cleanings, and any surgeries to prevent Endocarditis (bacterial infection in your heart) For any questions or concerns please call your valve coordinators: Mila or Dennis @ Discharge Disposition: HOME SELF-CARE
== END 2023-12-09 13:27 | disposition home or self-care (01) | DRG 267 ==
LOC: 2ORMAIN 07:29 → 3SCARD 13:51
PROVIDERS: ADMIT Internal Medicine; ATTEND Internal Medicine
PROC: 5A1223Z Performance of Cardiac Pacing, Continuous (ICD-10-PCS; 2023-12-08)
PROC: B3101ZZ Fluoroscopy of Thoracic Aorta using Low Osmolar Contrast (ICD-10-PCS; 2023-12-08)
PROC: B24BZZ4 Ultrasonography of Heart with Aorta, Transesophageal (ICD-10-PCS; 2023-12-08)
PROC: 02RF38Z Replacement of Aortic Valve with Zooplastic Tissue, Percutaneous Approach (ICD-10-PCS; principal; 2023-12-08 10:15)
DX: I35.0 Nonrheumatic aortic (valve) stenosis (principal); Z00.6 Encounter for examination for normal comparison and control in clinical research program; E78.5 Hyperlipidemia, unspecified; I10 Essential (primary) hypertension; I35.8 Other nonrheumatic aortic valve disorders; K21.9 Gastro-esophageal reflux disease without esophagitis
CPT/HCPCS: 33361; 71045; 80048; 80053; 82330; 83735; 85025; 93306; 93312; 93320; 93325